=== PATIENT | female | born 1990 | race Caucasian/White ===

== ENCOUNTER 2018-11-18 06:31 | Emergency (ER) | payer OTHER ==
[~2018-11-18] VITALS: Ht 167.6 cm; Wt 94.0 kg
[2018-11-18 06:37] VITALS: BP 107/71
--- NOTE | 2018-11-18 06:47 | NUR ---
VERY PLEASANT LADY HERE NOTING TREATED IN SEP WITH PCN FOR STREP THROAT, SOME IMPROVEMENT, WHITE PUSTULES RESOLVED HOWEVER TONSILS REMAINED SWOLLEN, TOOK A MONTH TO RESOLVE, THEN REOCCURRED AND PT TREATED WITH SALT WATER AND HOME, STATES RESOLVED HOWEVER RETURNED THIS PAST WEEK AND AGAIN NOTES SWOLLEN TONSILS WITH WHITE PUSTULES AND LOW GRADE TEMP.
--- NOTE | 2018-11-18 07:00 | NUR ---
RECEIVED REPORT FROM JAVIER TYLER. PT RESTING ON [place].
[2018-11-18 07:31] LABS: BASOPHILS # (AUTO) 0.05 x10^3/uL (0-0.1); BASOPHILS % (AUTO) 1 % (0-1); EOSINOPHILS # (AUTO) 0.01 x10^3/uL (0-0.4); EOSINOPHILS % (AUTO) 0 % (1-7); LYMPHOCYTES # (AUTO) 0.78 x10^3/uL (1-3.4); LYMPHOCYTES % (AUTO) 8 % (22-44); MD NO; MEAN CORPUSCULAR HEMOGLOBIN 29.1 pg (27.0-34.8); MEAN CORPUSCULAR HGB CONC 33.6 g/dL (32.4-35.8); MEAN CORPUSCULAR VOLUME 86.4 fL (80-100); MEAN PLATELET VOLUME 8.4 fL (7.4-10.4); MONOCYTES # (AUTO) 0.62 x10^3/uL (0.2-0.8); MONOCYTES % (AUTO) 7 % (2-9); NEUTROPHILS # (AUTO) 8.18 x10^3/uL (1.8-6.8); NEUTROPHILS % (AUTO) 85 % (42-75); PLATELET COUNT 277 x10^3/uL (130-400); RED BLOOD COUNT 4.48 x10^6/uL (3.82-5.3); RED CELL DISTRIBUTION WIDTH 12.6 % (9.6-15.2)
[2018-11-18] MEDS ORDERED: ACETAMINOPHEN 500 MG TABLET ONE (08:10)
[2018-11-18] MEDS ORDERED: ACETAMINOPHEN 500 MG TABLET PO ONE (08:30)
== END 2018-11-18 08:39 | disposition home or self-care (01) ==
LOC: ED 06:53
DX: J02.0 Streptococcal pharyngitis (principal)
CPT/HCPCS: 36415; 85025; 86308; 87081; 87880; 99283

== ENCOUNTER 2019-09-03 04:47 | Emergency (ER) | payer OTHER ==
[~2019-09-03] VITALS: Ht 167.6 cm; Wt 106.3 kg
--- NOTE | 2019-09-03 05:29 | NUR ---
RN to bedside, educated on the need for urine sample. Patient reports not feeling the need to urinate. [employer] to bedside, patient educated on the method for providing a clean catch urine sample. Patient agreeable. ict help desk technician to bedside, patient verbalized will take sample cup to ultrasound and if able will obtain sample there. Otherwise will obtain sample on return from ultrasound.
[2019-09-03 05:49] LABS: BASOPHILS # (AUTO) 0.05 x10^3/uL (0-0.1); BASOPHILS % (AUTO) 1 % (0-1); EOSINOPHILS # (AUTO) 0.18 x10^3/uL (0-0.4); EOSINOPHILS % (AUTO) 2 % (1-7); LYMPHOCYTES # (AUTO) 2.73 x10^3/uL (1-3.4); LYMPHOCYTES % (AUTO) 31 % (22-44); MD NO; MEAN CORPUSCULAR HGB CONC 33.4 g/dL (32.4-35.8); MEAN CORPUSCULAR VOLUME 86.7 fL (80-100); MONOCYTES # (AUTO) 0.53 x10^3/uL (0.2-0.8); MONOCYTES % (AUTO) 6 % (2-9); NEUTROPHILS # (AUTO) 5.19 x10^3/uL (1.8-6.8); NEUTROPHILS % (AUTO) 60 % (42-75); PLATELET COUNT 292 x10^3/uL (130-400); RED BLOOD COUNT 4.23 x10^6/uL (3.82-5.3); RED CELL DISTRIBUTION WIDTH 13.4 % (9.6-15.2)
[2019-09-03 05:52] LABS: ALANINE AMINOTRANSFERASE 13 U/L (12-78); ALBUMIN 3.4 g/dL (3.4-5.0); ANION GAP 5 mmol/L (5-15); CALCIUM 8.6 mg/dL (8.5-10.1); CHLORIDE 111 mmol/L (98-107); CREATININE 0.61 mg/dL (0.55-1.02)
[2019-09-03 05:55] LABS: ALKALINE PHOSPHATASE 49 U/L (45-117); BILIRUBIN,TOTAL 0.2 mg/dL (0.2-1.0); TOTAL PROTEIN 6.8 g/dL (6.4-8.2)
--- NOTE | 2019-09-03 06:03 | NUR ---
RN again to bedside, patient back from ultrasound and sample collected. Patient reports pain in the right upper quadrant has improved. Reports having a history of gallbladder issues and ate a high fat meal today. Awaiting ultrasound and urinalysis results.
--- NOTE | 2019-09-03 06:05 | NUR ---
Patient out of room for chest xray. Awaiting imaging read.
[2019-09-03 06:13] LABS: MICROSCOPIC NOT IND
[2019-09-03 06:27] LABS: CULTURE INDICATED? NO
--- NOTE | 2019-09-03 06:48 | NUR ---
Sebastian waddell in [facility] - 09/03/19 at 0649 by PEBBLES REPORT RECEIVED FROM JAVIER MCNEILL. CARE ASSUMED AT THIS TIME.
--- NOTE | 2019-09-03 06:49 | NUR ---
REPORT RECEIVED FROM JAVIER MCNEILL. CARE ASSUMED AT THIS TIME.
--- NOTE | 2019-09-03 07:25 | NUR ---
RECEIVED REPORT FROM TRACY
--- NOTE | 2019-09-03 07:26 | NUR ---
REPORT GIVEN TO JAVIER ASHRAF. CARE TRANSFERRED.
[2019-09-03 07:56] VITALS: BP 106/62
--- NOTE | 2019-09-03 07:56 | NUR ---
PT UPRIGHT ON GURNEY AWAKE & COMFORTABLE, RESPPNDS APPROP TO STAFF, NAD & DENIES PAIN, COMFORT MEASURES PROVIDED, FRIEND AT BS, CALL LIGHT WITHIN REACH.
--- NOTE | 2019-09-03 08:47 | NUR ---
Patient given discharge instructions and Rx, they have confirmed that they understand the instructions. Patient ambulatory with steady gait.
== END 2019-09-03 08:49 | disposition home or self-care (01) ==
LOC: ED 05:56
DX: K80.70 Calculus of gallbladder and bile duct without cholecystitis without obstruction (principal); R10.11 Right upper quadrant pain
CPT/HCPCS: 36415; 76700; 80053; 81003; 83690; 84703; 85025; 93005; 99284